=== PATIENT | female | born 1980 | race Two or more races ===

== ENCOUNTER 2016-10-04 15:36 | Emergency (ER) | payer MEDICAID ==
[~2016-10-04] VITALS: Ht 144.8 cm; Wt 81.6 kg
[2016-10-04 15:45] VITALS: BP 143/87
== END 2016-10-04 17:19 | disposition home or self-care (01) ==
LOC: ER 15:43
DX: S80.01XA Contusion of right knee, initial encounter (principal); W01.0XXA Fall on same level from slipping, tripping and stumbling without subsequent striking against object, initial encounter; Y93.89 Activity, other specified; Y99.8 Other external cause status; Y92.512 Supermarket, store or market as the place of occurrence of the external cause